=== PATIENT | female | born 1975 | race American Indian/Alaskan Native ===

== ENCOUNTER 2020-03-15 18:24 | Emergency (ER) | payer SELFPAY ==
--- NOTE | 2020-03-15 19:27 | XRay Report ---
RIGHT FOOT 3 VIEWS RIGHT ANKLE 3 VIEWS INDICATION: fall/fracture. COMPARISON: No relevant prior imaging study available. FINDINGS: Right foot: No acute fracture or dislocation. No foreign bodies or soft tissue gas. Right ankle: No acute, displaced fracture or dislocation is seen. There is mild soft tissue swelling. IMPRESSION: 1. No acute fracture is identified. Signer Name: Alexander Crooks MD Signed: 03/15/2020 7:22 PM Workstation Name: [id number]
[2020-03-15 19:47] VITALS: BP 122/84
--- NOTE | 2020-03-15 19:50 | Emergency Department Report ---
ED Lower Extremity HPI - General Chief Complaint: Extremity Injury, Lower Stated Complaint: FELL RT ANKLE INJURY Time Seen by Provider: 03/15/20 18:35 Source: patient Mode of arrival: Ambulatory Limitations: No Limitations - History of Present Illness Initial Comments: This is a 45-year-old male fenontoxic, well nourished in appearance, no acute signs of distress presents to the ED with c/o of right foot pain s/p fall yesterday. Patient denies any other trauma or injuries. Denies any LOC, head trauma, neck pain or back pains. Stated has some decreased ROM but denies joint swelling, redness, or abnormal gait. Denies any fever, chills, nausea, vomiting, headache, stiff neck, chest pain or shortness of breath. Patient denies any numbness or tingling. MD Complaint: foot injury -: days(s) Injury: Foot: Right Severity: mild Severity scale (0 -10): 8 Improves With: nothing Worsens With: nothing Context: fall Associated Symptoms: swelling, able to partially bear weight. denies: snap/pop sensation, numbness, tingling, unable to bear weight - Related Data Previous Rx's Medication Instructions Recorded Last Taken Type Acetaminophen/Codeine [Tylenol 1 tab PO Q6H PRN #12 tab 03/15/20 Unknown Rx /Codeine # 3 tab] Allergies Allergy/AdvReac Type Severity Reaction Status Date / Time amoxicillin Allergy Unknown Verified 03/15/20 18:28 azithromycin [From Zithromax] Allergy Unknown Verified 03/15/20 18:28 naproxen Allergy Unknown Verified 03/15/20 18:28 Penicillins Allergy Unknown Verified 03/15/20 18:28 ED Review of Systems ROS: Stated complaint: FELL RT ANKLE INJURY Other details as noted in HPI Comment: All other systems reviewed and negative Constitutional: denies: chills, fever Eyes: denies: eye pain, eye discharge, vision change ENT: denies: ear pain, throat pain Respiratory: denies: cough, shortness of breath, wheezing Cardiovascular: denies: chest pain, palpitations Endocrine: no symptoms reported Gastrointestinal: denies: abdominal pain, nausea, diarrhea Genitourinary: denies: urgency, dysuria, discharge Musculoskeletal: denies: back pain, joint swelling, arthralgia Skin: denies: rash, lesions Neurological: denies: headache, weakness, paresthesias Psychiatric: denies: anxiety, depression Hematological/Lymphatic: denies: easy bleeding, easy bruising ED Past Medical Hx - Past Medical History Previous Medical History?: No Additional medical history: anxiety, depression, HLD, divertilitis - Surgical History Additional Surgical History: Head, right knee, foot - Social History Smoking Status: Never Smoker - Medications Home Medications: Home Medications Medication Instructions Recorded Confirmed Last Taken Type Acetaminophen/Codeine [Tylenol 1 tab PO Q6H PRN #12 tab 03/15/20 Unknown Rx /Codeine # 3 tab] ED Physical Exam - General Limitations: No Limitations General appearance: alert, in no apparent distress - Head Head exam: Present: atraumatic, normocephalic - Eye Eye exam: Present: normal appearance - Neck Neck exam: Present: normal inspection, full ROM. Absent: tenderness, meningismus, lymphadenopathy - Respiratory Respiratory exam: Absent: respiratory distress - Cardiovascular Cardiovascular Exam: Present: regular rate - Extremities Exam Extremities exam: Present: full ROM, tenderness, normal capillary refill. Absent: joint swelling, calf tenderness - Expanded Lower Extremity Exam Right Hip exam: Present: normal inspection, full ROM. Absent: tenderness, swelling Upper Leg exam: Present: normal inspection, full ROM. Absent: tenderness, swelling Knee exam: Present: normal inspection, full ROM. Absent: tenderness, swelling Lower Leg exam: Present: normal inspection, full ROM. Absent: tenderness, swelling Ankle exam: Present: full ROM, tenderness, swelling, ecchymosis. Absent: abrasion, laceration, deformity, crepidus, dislocation, erythema, anterior draw sign Foot/Toe exam: Present: normal inspection, full ROM. Absent: tenderness, swelling Neuro vascular tendon exam: Present: no vascular compromise Gait: Positive: observed and limited by pain - Back Exam Back exam: Present: normal inspection, full ROM. Absent: tenderness, CVA tenderness (R), CVA tenderness (L), muscle spasm, paraspinal tenderness, vertebral tenderness, rash noted - Neurological Exam Neurological exam: Present: alert, oriented X3 - Psychiatric Psychiatric exam: Present: normal affect, normal mood - Skin Skin exam: Present: warm, dry, intact, normal color. Absent: rash ED Course Vital Signs 03/15/20 18:32 Temperature 99.1 F Pulse Rate 77 Respiratory 20 Rate Blood Pressure 122/84 O2 Sat by Pulse 99 Oximetry - Reevaluation(s) Reevaluation #1: 03/15/20 19:48 Patient is speaking in full sentences with no signs of distress noted. ED Lower Extremity MDM - Medical Decision Making Patient is stable and was examined by me. Patient notified of the xray results with no questions noted by the patient. Patient received ankle stirrup and crutches and was educated by RN how to use crutches. Post splint: neurovascular intact, cap refill <2 seconds, normal sensation. Educated on RICE therapy. Patient was instructed to Follow-up with a orthopedic doctor in 3-5 days or if symptoms worsen and continue return to emergency room as soon as possible. At time of discharge, the patient does not seem toxic or ill in appearance. No acute signs of distress noted. Patient agrees to discharge treatment plan of care. No further questions noted by the patient. Critical care attestation.: If time is entered above; I have spent that time in minutes in the direct care of this critically ill patient, excluding procedure time. ED Disposition Clinical Impression: Right foot strain Qualifiers: Encounter type: initial encounter Qualified Code(s): S96.911A - Strain of unspecified muscle and tendon at ankle and foot level, right foot, initial encounter Right ankle sprain Qualifiers: Encounter type: initial encounter Involved ligament of ankle: unspecified ligament Qualified Code(s): S93.401A - Sprain of unspecified ligament of right ankle, initial encounter Disposition: TO HOME OR SELFCARE Is pt being admited?: No Does the pt Need Aspirin: No Condition: Stable Instructions: How to Use a Stirrup Ankle Brace, [id number], Ankle Sprain, Phase I Rehab-SportsMed, RICE Therapy for Routine Care of Injuries, [id number], Acetaminophen; Oxycodone capsules Additional Instructions: Follow-up with a orthopedic doctor in 3-5 days or if symptoms worsen and continue return to emergency room as soon as possible. . No physical activity until cleared by orthopedic doctor. Prescriptions: Acetaminophen/Codeine [Tylenol /Codeine # 3 tab] 1 tab PO Q6H PRN #12 tab PRN Reason: Pain , Severe (7-10) Referrals: PRIMARY CARE, [Referring] - 3-5 Days JUDIT ACEVEDO MD [Staff Physician] - 3-5 Days Forms: Work/School Release Form(ED)
[2020-03-15] MEDS ORDERED: HYDROcodone/ACETAMINOPHEN 10-325MG TAB PO ONE (19:52)
[2020-03-15] MEDS ORDERED: HYDROcodone/ACETAMINOPHEN 10-325MG TAB ONE (19:53)
== END 2020-03-15 20:20 | disposition home or self-care (01) ==
LOC: ED 18:24
DX: S96.911A Strain of unspecified muscle and tendon at ankle and foot level, right foot, initial encounter (principal); S93.401A Sprain of unspecified ligament of right ankle, initial encounter; F41.9 Anxiety disorder, unspecified; F32.9 Major depressive disorder, single episode, unspecified; Z79.899 Other long term (current) drug therapy; Z88.0 Allergy status to penicillin; Z88.1 Allergy status to other antibiotic agents; Z88.8 Allergy status to other drugs, medicaments and biological substances; W18.30XA Fall on same level, unspecified, initial encounter; Y93.89 Activity, other specified; Y92.89 Other specified places as the place of occurrence of the external cause; Y99.8 Other external cause status
CPT/HCPCS: 99283